=== PATIENT | female | born 1945 | race Caucasian/White ===

== ENCOUNTER → 2016-03-17 | Outpatient (CLI) | payer OTHER, MEDICARE ==
--- NOTE | 2016-03-17 16:57 | MA ---
Screening Digital Mammogram With iCAD Analysis Clinical Indications: Routine screening. Technique: Standard cephalocaudal and mediolateral oblique projections were obtained. This examinatio n was processed by the iCAD computer aided detection system. Comparison: January 2015, December 2013, December 2012, December 2011, December 2010, October 2009 , September 2008. Breast density: Type B; Scattered fibroglandular densities. Findings: CAD was reviewed. No masses, suspicious calcifications or other signs of malignancy are id entified. There has been no significant change in the appearance of either breast. Impression: Negative mammogram. BI-RADS 1. Recommendation: Routine mammographic screening in one year as long as physical examination is negativ [facility]. Negative mammography should not preclude additional workup of a clinically suspicious finding. The patient's information is entered into a reminder system with a target due date for her next mammo gram.
== END ==
LOC: BMCIMAGING 14:32
DX: Z12.31 Encounter for screening mammogram for malignant neoplasm of breast (principal)
CPT/HCPCS: G0202

== ENCOUNTER → 2016-08-09 | Outpatient (CLI) | payer OTHER, MEDICARE | LOC: FIMAGING 15:10 | PROVIDERS: ATTEND Psychiatry & Neurology Child & Adolescent Psychiatry | DX: R94.02 Abnormal brain scan (principal); R41.3 Other amnesia ==

== ENCOUNTER → 2016-12-16 | Outpatient (CLI) | payer OTHER, MEDICARE | LOC: BMCIMAGING 13:34 | PROVIDERS: ATTEND Podiatrist Foot & Ankle Surgery | DX: M61.571 Other ossification of muscle, right ankle and foot (principal) ==

== ENCOUNTER → 2017-01-03 | Outpatient (CLI) | payer OTHER, MEDICARE | LOC: FIMAGING 15:10 | PROVIDERS: ATTEND Podiatrist Foot & Ankle Surgery | DX: M24.08 Loose body, other site (principal); M79.671 Pain in right foot ==

== ENCOUNTER → 2017-06-13 | Outpatient (CLI) | payer OTHER, MEDICARE | LOC: BMCIMAGING 11:59 | PROVIDERS: ATTEND Internal Medicine | DX: Z12.31 Encounter for screening mammogram for malignant neoplasm of breast (principal) ==